=== PATIENT | male | born 2000 ===

== ENCOUNTER 2021-07-13 09:35 | Emergency (ER) | payer MEDICAID ==
--- NOTE | 2021-07-13 10:20 | Emergency Department Report ---
ED Syncope HPI - General Chief Complaint: Syncope Stated Complaint: PASSED OUT Time Seen by Provider: 07/13/21 10:13 - History of Present Illness Initial Comments: Patient presents with syncope. He had gotten out of bed this morning. He went to the restroom. He was standing in the bathroom after washing his face and p assed out. He does not know what happened. He landed on his shoulder, but does not have any pain. He states that he went and got his father and then they brought him here. Patient had this happen about a month ago. Again, he had gotten out of bed and passed out on the way to the bathroom. Patient did not have any prodromal symptoms. He has no complaints now. He states he was out for "a few seconds." - Related Data Allergies/Adverse Reactions: Allergies No Known Allergies Allergy (Unverified 07/13/21 09:45) ED Review of Systems ROS: Stated complaint: PASSED OUT Other details as noted in HPI Comment: All other systems reviewed and negative Constitutional: denies: fever Eyes: denies: vision change ENT: denies: ear pain Respiratory: denies: cough Cardiovascular: denies: chest pain Endocrine: denies: unexplained weight loss Gastrointestinal: denies: vomiting Genitourinary: denies: dysuria Musculoskeletal: denies: back pain Skin: denies: rash Neurological: denies: headache Hematological/Lymphatic: denies: easy bruising ED Past Medical Hx - Past Medical History Previous Medical History?: No - Family History Family history: no significant ED Physical Exam - General Limitations: No Limitations, Other (Pulse ox noted and normal) General appearance: alert, in no apparent distress - Head Head exam: Present: atraumatic, normocephalic - Eye Eye exam: Present: normal appearance, PERRL, EOMI - ENT ENT exam: Present: mucous membranes moist, normal external ear exam - Neck Neck exam: Present: normal inspection. Absent: tenderness, meningismus - Respiratory Respiratory exam: Present: normal lung sounds bilaterally. Absent: respiratory distress - Cardiovascular Cardiovascular Exam: Present: regular rate, normal rhythm - GI/Abdominal GI/Abdominal exam: Present: soft. Absent: tenderness - Extremities Exam Extremities exam: Present: normal capillary refill. Absent: calf tenderness - Back Exam Back exam: Absent: CVA tenderness (R), CVA tenderness (L) - Neurological Exam Neurological exam: Present: alert, oriented X3, CN II-XII intact, normal gait, reflexes normal, other (NIH score is 0). Absent: motor sensory deficit - Psychiatric Psychiatric exam: Present: normal affect, normal mood - Skin Skin exam: Present: warm, dry ED Course Vital Signs 07/13/21 07/13/21 07/13/21 09:48 09:49 10:33 Temperature 98.4 F 100.1 F H Pulse Rate 87 119 H 93 H Respiratory 18 18 21 Rate Blood Pressure 101/52 Blood Pressure 109/66 [Left] O2 Sat by Pulse 99 95 98 Oximetry 07/13/21 07/13/21 07/13/21 10:43 10:45 10:47 Temperature 98.4 F Pulse Rate 85 87 Respiratory 18 26 H 18 Rate Blood Pressure 109/66 109/66 Blood Pressure [Left] O2 Sat by Pulse 99 100 99 Oximetry 07/13/21 10:51 Temperature Pulse Rate 87 Respiratory Rate Blood Pressure Blood Pressure [Left] O2 Sat by Pulse Oximetry - Reevaluation(s) Reevaluation #1: 07/13/21 10:20 Labs ordered. EKG noted. Reevaluation #2: 07/13/21 11:11 Labs are still pending. 07/13/21 11:49 Work-up was complete and the patient was discharged ED Medical Decision Making - Lab Data Result diagrams: 07/13/21 10:34 07/13/21 10:34 Rhythm strip: Normal sinus rhythm without ectopy. Monitor observe 10 seconds. - EKG Data -: EKG Interpreted by Me - EKG Data When compared to previous EKG there are: previous EKG unavailable 07/13/21 11:11 0955-EKG shows normal sinus rhythm at 86. Intervals are normal including a QRS of 72 and a QT corrected of 376. Patient has no ST elevation to suggest STEMI. There is ST depression in 3 as well as aVF. Patient has no ectopy noted. There is no old EKG for comparison. - Medical Decision Making Patient presented with syncope of unclear etiology. This was not exertional. This was not micturitional. He did not seem to have orthostasis. There is no evidence of metabolic derangement. He was not anemic. Patient does not have any dysrhythmia. There was no documented seizure activity. Patient can follow- up. Outpatient Holter monitor may be considered. Critical Care Time: No Critical care attestation.: If time is entered above; I have spent that time in minutes in the direct care of this critically ill patient, excluding procedure time. ED Disposition Clinical Impression: Syncope Qualifiers: Syncope type: unspecified Qualified Code(s): R55 - Syncope and collapse Disposition: 01 HOME / SELF CARE / HOMELESS Is pt being admited?: No Condition: Stable Instructions: Syncope, Syncope (ED) Additional Instructions: Drink water. Return for problems. Follow-up with your regular doctor or the referral doctor for recheck and further management. Referrals: PRIMARY CARE, [Referring] - 3-5 Days DUONG TARANGO MD [Staff Physician] - 3-5 Days BRANDI GRUBER MD [Staff Physician] - 3-5 Days
[2021-07-13 11:11] LABS: Hematocrit 37.2 % (35.5-45.6); Hemoglobin 13.2 gm/dl (11.8-15.2); Mean Corpuscular HGB Conc 36 % (32-34); Mean Corpuscular Volume 84 fl (84-94); Platelet Count 140 K/mm3 (140-440); Red Blood Count 4.43 M/mm3 (3.65-5.03); Red Cell Distribution Width 12.5 % (13.2-15.2)
[2021-07-13 11:35] LABS: BUN/Creatinine Ratio 13; Blood Urea Nitrogen 13 mg/dL (9-20); Hemolysis Index 48
[2021-07-13 12:53] VITALS: BP 124/80
--- NOTE | 2021-07-14 11:02 | Electrocardiograph Report ---
[facility] Test Date: 2021-07-13 Test Time: 09:55:32 Pat Name: KAMLA SWENSON Department: Room: Gender: M [employer]: LIVIA : 2000 Requested By: GHISLAINE MCBRIDE Order Number: [id number] Reading MD: Celso Garcia Measurements Intervals [place] Rate: 86 P: 72 [place]: 162 QRS: 80 QRSD: 72 T: 51 QT: 314 QTc: 376 Interpretive Statements Sinus rhythm No previous ECG available for comparison Electronically Signed On 07-14-2021 11:02:19 EDT by Celso Garcia
== END 2021-07-13 12:44 | disposition home or self-care (01) ==
LOC: ED 09:35
DX: R55 Syncope and collapse (principal)
CPT/HCPCS: 36415; 80048; 85027; 93005; 99283